=== PATIENT | male | born 2000 | race Hispanic/Latino ===

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

== ENCOUNTER 2022-03-28 13:46 | Emergency (ER) | payer MEDICAID ==
[~2022-03-28] VITALS: Ht 172.7 cm; Wt 99.8 kg
[2022-03-28 15:30] VITALS: BP 146/69
== END 2022-03-28 16:30 | disposition left against medical advice (07) ==
LOC: EDH 13:46
DX: R45.851 Suicidal ideations (principal); Z53.21 Procedure and treatment not carried out due to patient leaving prior to being seen by health care provider